=== PATIENT | female | born 1940 | race Caucasian/White ===

== ENCOUNTER 2023-10-08 05:59 | Day surgery (SDC) | payer MEDICARE, OTHER ==
[2023-10-08] MEDS: SODIUM CHLORIDE 0.9% 500 ML 500 ML IV ONE (06:33)
[2023-10-08] MEDS ORDERED: SODIUM CHLORIDE 0.9% 500 ML 500 ML IV SCH (06:45)
[2023-10-08] MEDS ORDERED: fentaNYL (PF) 50 MCG/ML 2 ML AMP ONE (07:13)
[2023-10-08 07:19] VITALS: RESP 16; TEMP 98
[2023-10-08] MEDS: MIDAZOLAM 2 MG/2 ML VIAL IVP ONE (07:35)
[2023-10-08] MEDS: BENZOCAINE SPRAY 1 CAN TOPICAL ONE (07:35)
[2023-10-08] MEDS: fentaNYL (PF) 50 MCG/ML 2 ML AMP IVP ONE (07:35)
--- NOTE | 2023-10-08 08:16 | ECHOT ---
TRANSESOPHAGEAL ECHOCARDIOGRAM INDICATION: TIA. PROCEDURE NOTE: After obtaining informed consent, transesophageal echocardiogram was performed in left lateral position using an Omniplane probe. Local and IV sedation were obtained using 2 mg of Versed and 25 mcg of fentanyl. Total sedation time was 10 minutes. The patient tolerated the procedure well without any obvious immediate complications. FINDINGS: 1. There is no intracardiac thrombus within the left atrial appendage, left atrium, right atrium, right ventricle. 2. Left ventricle has normal size and systolic function. 3. Aortic root measures within normal limits. 4. There is no evidence of kejl-km-maqmo shunt by color-flow Doppler or ecolj-bk-[id number] shunt by agitated saline contrast study. 5. Mitral valve is anatomically normal. There is mild central mitral regurgitation noted. 6. Tricuspid valve shows mild tricuspid regurgitation. Aortic valve is free of stenosis or regurgitation. CONCLUSIONS: 1. No intracardiac thrombus. 2. Normal LV systolic function. 3. No evidence of shunting across the interatrial septum. MMODL / IJN: [id number] /
[2023-10-08 08:55] VITALS: BP 133/62
[2023-10-08 08:56] VITALS: PULSE 62
== END 2023-10-08 09:08 | disposition home or self-care (01) ==
LOC: CATHCVL 05:59
PROVIDERS: ATTEND Internal Medicine Cardiovascular Disease
DX: I08.1 Rheumatic disorders of both mitral and tricuspid valves (principal); E78.5 Hyperlipidemia, unspecified; I10 Essential (primary) hypertension; Z86.73 Personal history of transient ischemic attack (TIA), and cerebral infarction without residual deficits; Z79.01 Long term (current) use of anticoagulants; Z79.899 Other long term (current) drug therapy
CPT/HCPCS: 93312; 93320; 93325; J2250; J3010